=== PATIENT | male | born 1930 | race Caucasian/White ===

== ENCOUNTER 2018-05-29 15:52 | Inpatient (IN) | payer OTHER ==
--- NOTE | 2018-05-29 17:28 | PDOC ---
History of Present Illness - General Chief Complaint: Blood Transfusion Stated Complaint: ABNORMAL LABS Time Seen by Provider: 05/29/18 16:00 History Source: Patient, Skilled Nursing Records, Other (daughtert) Exam Limitations: No Limitations - History of Present Illness Initial Comments: 05/29/18 17:07 87-year-old male with history of bladder CA and recent esophageal stricture with gastritis was sent from the [facility] office for evaluation of positive pinkish red stool on digital exam are normal with low H&H which was done yesterday at the [facility]. Patient has had intermittent rectal bleeding for the past week and so was sent to the [facility] today. Patient has no complaints of weakness, shortness of breath dizziness, or chest pain. Timing/Duration: unsure Associated Symptoms: reports: denies symptoms Past History - Past Medical History Allergies/Adverse Reactions: Allergies Allergy/AdvReac Type Severity Reaction Status Date / Time No Known Allergies Allergy Verified 05/29/18 16:16 Cancer: Yes GI Disorders: Yes - Suicide/Smoking/Psychosocial Hx Smoking History: Never smoked Have you smoked in the past 12 months: No Information on smoking cessation initiated: No Hx Alcohol Use: No Drug/Substance Use Hx: No Lives with/in: [facility] Review of Systems - Review of Systems Able to Perform ROS?: No Constitutional: No: Symptoms Reported HEENTM: No: Symptoms Reported Respiratory: No: Symptoms reported Cardiac (ROS): No: Symptoms Reported ABD/GI: Yes: Rectal Bleeding. No: Constipated, Diarrhea, Nausea, Poor Appetite , Poor Fluid Intake, Vomiting, Abdominal cramping : No: Symptoms Reported Musculoskeletal: No: Symptoms Reported Integumentary: No: Symptoms Reported Neurological: No: Symptoms reported Endocrine: No: Symptoms Reported Hematologic/Lymphatic: Yes: Anemia *Physical Exam - Vital Signs Last Vital Signs Temp Pulse Resp BP Pulse Ox 98.2 F 57 L 16 125/55 98 05/29/18 16:11 05/29/18 16:11 05/29/18 16:11 05/29/18 16:11 05/29/18 16:11 - Physical Exam General Appearance: Yes: Nourished, Appropriately Dressed. No: Apparent Distress HEENT: positive: EOMI, EVANGELINA. negative: Pale Conjunctivae Neck: positive: Supple Respiratory/Chest: positive: Lungs Clear, Normal Breath Sounds. negative: Respiratory Distress, Accessory Muscle Use Cardiovascular: positive: Regular Rhythm, Bradycardia. negative: Murmur Gastrointestinal/Abdominal: positive: Normal Bowel Sounds, Soft. negative: Distended, Guarding, Rebound, Tenderness Rectal Exam: positive: heme positive stool (pinkish red stool on digital exam. No palpable hemorrhoids) Musculoskeletal: negative: CVA Tenderness Extremity: positive: Normal Capillary Refill. negative: Pedal Edema Integumentary: positive: Warm, Pale, Moist Neurologic: positive: Normal Mood/Affect, Motor Strength 5/5 Heart Score/ECG Review - ECG Impressions Normal ECG: No Bradycardia: Yes (Rate 57. Inverted T waves noted in the lateral leads V4 V5 and V6. QRS 130 milliseconds. QTc 465 ms. No previous EKG for comparison.) ED Treatment Course - LABORATORY CBC & Chemistry Diagram: 05/29/18 17:32 05/29/18 17:32 Medical Decision Making - Medical Decision Making 05/29/18 17:01 Patient sent for evaluation of rectal bleeding along with H&H which was recorded yesterday of 7.9 and 24. Family and patient unable to recall [facility]. Call placed to Dr. Alcala service states admit to the hospitalist. Patient is currently asymptomatic. EKG shows inverted T waves in the lateral leads. Called the [facility] and has no EKG on file and only cardiac history as cardiomyopathy. Cardiac profile was added to anemia w/u. 05/29/18 18:20 Laboratory Tests 05/29/18 05/29/18 05/29/18 17:32 17:32 17:32 WBC 4.7 RBC 2.22 L Hgb 8.0 L Hct 24.1 L MCV 108.5 H MCH 36.2 H Plt Count 150 Monocytes % 12.0 H Sodium 142 Potassium 4.9 Chloride 109 H Carbon Dioxide 23 Anion Gap 10 BUN 45 H Creatinine 2.6 H Random Glucose 110 H Calcium 8.1 L Magnesium 2.2 AST 22 ALT 33 Creatine Kinase Troponin I Albumin 2.8 L Blood Type Pending Antibody Screen Pending 05/29/18 17:45 WBC RBC Hgb Hct MCV MCH Plt Count Monocytes % Sodium Potassium Chloride Carbon Dioxide Anion Gap BUN Creatinine Random Glucose Calcium Magnesium AST ALT Creatine Kinase Pending Troponin I Pending Albumin Blood Type Antibody Screen Patient's labs from yesterday shows a baseline creatinine of 2.33 and bun Of 41. Microblog was sent to hospice and states to microblog again once labs are resulted, including cardiac profile 05/29/18 18:36 Laboratory Tests 05/29/18 05/29/18 17:32 17:45 Creatine Kinase 51 Troponin I < 0.02 Total Protein 7.1 *DC/Admit/Observation/Transfer Diagnosis at time of Disposition: Anemia, Rectal bleeding - Discharge Dispostion Decision to Admit order: Yes - Referrals Referrals: Prasanna Alcala MD [Primary Care Provider] - - Patient Instructions - Post Discharge Activity
[2018-05-29 17:40] LABS: BASO % 0.3 % (0-2.0); EOS % 2.3 % (0-4.5); HEMATOCRIT 24.1 % (35.4-49); LYMPH % 15.9 % (8-40); MCH 36.2 pg (25.7-33.7); MCHC 33.4 g/dl (32.0-35.9); MEAN CELL VOLUME 108.5 fl (80-96); MEAN PLT VOLUME 7.6 fl (7.5-11.1); NEUT % 69.5 % (42.8-82.8); PLATELET COUNT 150 K/MM3 (134-434); RBC 2.22 M/mm3 (4.00-5.60); RDW 16.7 % (11.9-15.9); WHITE BLOOD COUNT 4.7 K/mm3 (4.0-10.0)
[2018-05-29 18:08] LABS: ALBUMIN 2.8 g/dl (3.4-5.0); ALK PHOS 100 U/L (45-117); ANION GAP 10 (8-16); BILIRUBIN,TOTAL 0.2 mg/dL (0.2-1.0); BLOOD UREA NITROGEN 45 mg/dL (7-18); CALCIUM 8.1 mg/dL (8.5-10.1); CHLORIDE 109 mmol/L (98-107); CO2 23 mmol/L (21-32); CREATININE 2.6 mg/dL (0.7-1.3); GLUCOSE,RANDOM 110 mg/dL (74-106); MAGNESIUM 2.2 mg/dL (1.8-2.4); POTASSIUM 4.9 mmol/L (3.5-5.1); SGOT/AST 22 U/L (15-37); SGPT/ALT 33 U/L (12-78); SODIUM 142 mmol/L (136-145); TOT PROT 7.1 g/dl (6.4-8.2)
[2018-05-29 20:39] LABS: MACROCYTOSIS 1+; PLATELET ESTIMATE ADEQUATE
[2018-05-29] MEDS ORDERED: SODIUM CHLORIDE 1,000 ML IV SCH (21:30)
--- NOTE | 2018-05-29 22:17 | PN ---
Teaching Attending Note Name of Resident: Dustin Rodriguez ATTENDING PHYSICIAN STATEMENT I saw and evaluated the patient. I reviewed the resident's note and discussed the case with the resident. I agree with the resident's findings and plan as documented. SUBJECTIVE: Patient is an 87 year old man with history of bladder CA and recent esophageal stricture with gastritis was sent from the mental retardation nurse office for evaluation of positive pinkish red stool and low H&H which was [facility] at the [facility]. Patient has had intermittent rectal bleeding (melena and bright red blood) for the past week and so was sent to the mental retardation nurse today. At this time there is no active bleeding per rectum and no external hemorrhoids noted. Patient denies weakness, shortness of breath dizziness, or chest pain. OBJECTIVE: Alert, and in no acute distress Vital Signs Period Temp Pulse Resp BP Sys/Street Pulse Ox Last 24 Hr 97.9 F-98.2 F 57-57 16-18 125-151/55-55 95-98 HEENT: No Jaundice, eye redness or discharge, PERRLA, EOMI. Normocephalic, atraumatic. External ears are normal and hearing is grossly intact. No nasal discharge. Neck: Supple, nontender. No palpable adenopathy or thyromegaly. No JVD Chest: Good effort. Clear to auscultation and percussion. Heart: Bradycardia. No S3, rub or murmur Abdomen: Not distended, soft, nontender and no HSM. No rebound or guarding. Normoactive bowel sounds. Ext: Peripheral pulses intact. No leg edema. Skin: Warm and dry. No petechiae, rash or ecchymosis. Neuro: Alert. Oriented x3. CN 2-12 grossly intact. Sensation grossly intact in all four extremities and DTR are symmetric. Current Medications Generic Name Dose Route Start Last Admin Trade Name Freq PRN Reason Stop Dose Admin Sodium Chloride 1,000 mls @ 100 mls/hr 05/29/18 21:30 Normal Saline - [facility] Home Medications Medication Instructions Recorded Aa/Hydrolyzed Collagen, Whey [Lps 30 ml PO DAILY 05/29/18 Neutral Flavor Liquid] Acetaminophen [Pain Relief] 650 mg PO Q6H PRN 05/29/18 Ascorbate Calcium [Vitamin C] 500 mg PO BID 05/29/18 Aspirin/Dipyridamole [Aggrenox -] 1 combo PO BID 05/29/18 Ferrous Sulfate 325 mg PO TID 05/29/18 Heparin - 5,000 unit SQ BID 05/29/18 Hydralazine HCl 10 mg PO DAILY 05/29/18 Isosorbide Mononitrate [Isosorbide 30 mg PO DAILY 05/29/18 Mononitrate ER] Metoprolol Succinate 12.5 mg PO DAILY 05/29/18 Multivitamins [Tab-A-Vit -] 1 tab PO DAILY 05/29/18 Omeprazole 20 mg PO DAILY 05/29/18 Simvastatin 20 mg PO HS 05/29/18 Vit C/E/Zn/Coppr/Lutein/Zeaxan 1 each PO BID 05/29/18 [Preservision Areds 2 Softgel] Abnormal Lab Results 05/29/18 05/29/18 17:32 17:32 RBC 2.22 L Hgb 8.0 L Hct 24.1 L MCV 108.5 H MCH 36.2 H RDW 16.7 H Monocytes % 12.0 H Chloride 109 H BUN 45 H Creatinine 2.6 H Random Glucose 110 H Calcium 8.1 L Albumin 2.8 L ASSESSMENT AND PLAN: 1. GI Bleeding - The source of the bleeding is unclear. There is no indication at this time for NGT lavage to rule out gastric bleeding. Will get a CT of Abdomen and Pelvis, monitor hematocrit and transfuse once indicated, consult GI for colonoscopy and EGD. Treat with protonix 40 mg IV q 24 hours just in case it is PUD bleeding, check iron stores, B12 and folate (macrocytosis). Once iron deficiency is confirmed, he would benefit from IV iron therapy and possibly Procrit since he may have underlying renal anemia. 2. CKD - Etiology unclear. Needs nephrologic workup. Will consult nephrology and avoid nephrotoxic agents such as NSAIDS, aminoglycosides, contrast dyes and certain Alternative medicine products. 3. Elevated troponin - EKG shows sinus bradycardia with T wave inversion in V4- 6. No old EKG available. Will trend troponin, monitor him on telemetry and rule out ACS. If he does have ACs, then he may need to be transfused. 4. Hypoalbuminemia - He is on Puree diet due to dysphagia. Low albumin is possibly due to combined effects of malnutrition and inflammation associated with comorbid chronic conditions. Will ensure adequate dietary protein intake and also consult stripper color. 5. Hyperglycemia - Will check HbA1c to rule out prediabetes. 6. DVT prophylaxis - SCD, Early ambulation 7. Advance directives - Full code
[2018-05-29 23:09] LABS: URINE APPEARANCE CLEAR; URINE BILIRUBIN NEGATIVE (<2.0 mg/dL); URINE COLOR LTYELLOW; URINE GLUCOSE (UA) NEGATIVE (NEGATIVE); URINE KETONE NEGATIVE (NEGATIVE); URINE LEUK ESTERASE NEGATIVE (NEGATIVE); URINE NITRITE NEGATIVE (NEGATIVE); URINE UROBILINOGEN NEGATIVE mg/dL (0.2-1.0)
[2018-05-29 23:12] LABS: URINE PROTEIN 1+ (NEGATIVE)
[2018-05-29 23:15] LABS: URINE MUCUS RARE
--- NOTE | 2018-05-29 23:38 | HP ---
CHIEF COMPLAINT: GI bleeding PCP: HISTORY OF PRESENT ILLNESS: 87 y/o male from rehab facility with PMH bladder CA , cardiomyopathy with EF 35%, CAD s/p CABG, HTN, HLD, CKD, anemia, esophageal stricture, recently resolved UTI, was sent to ED by his GI physician after finding blood per rectum with HB 7.9 and HCT 24.0. Patient admits to melena for past week, and has had 5 episodes of dark colored stools over past 3 years but as never been worked up. Admits to diarrhea. Denies pain with bowel movements, abdominal pain, fevers, chills, SOB, nausea, vomiting, constipation. ER course was notable for: (1) EKG, fecal occult blood test, (2) (3) Recent Travel: PAST MEDICAL HISTORY: bladder CA, cardiomyopathy with EF 35%, CAD s/p CABG, HTN , HLD, CKD, anemia, esophageal stricture, recently resolved UTI PAST SURGICAL HISTORY: B/L carotid endarterectomy, abdominal aorta repair, CABG , Social History: Smoking: denies Alcohol: denies Drugs: denies Family History: Allergies No Known Allergies Allergy (Verified 05/29/18 16:16) HOME MEDICATIONS: Home Medications Medication Instructions Recorded Aa/Hydrolyzed Collagen, Whey [Lps 30 ml PO DAILY 05/29/18 Neutral Flavor Liquid] Acetaminophen [Pain Relief] 650 mg PO Q6H PRN 05/29/18 Ascorbate Calcium [Vitamin C] 500 mg PO BID 05/29/18 Aspirin/Dipyridamole [Aggrenox -] 1 combo PO BID 05/29/18 Ferrous Sulfate 325 mg PO TID 05/29/18 Heparin - 5,000 unit SQ BID 05/29/18 Hydralazine HCl 10 mg PO DAILY 05/29/18 Isosorbide Mononitrate [Isosorbide 30 mg PO DAILY 05/29/18 Mononitrate ER] Metoprolol Succinate 12.5 mg PO DAILY 05/29/18 Multivitamins [Tab-A-Vit -] 1 tab PO DAILY 05/29/18 Omeprazole 20 mg PO DAILY 05/29/18 Simvastatin 20 mg PO HS 05/29/18 Vit C/E/Zn/Coppr/Lutein/Zeaxan 1 each PO BID 05/29/18 [Preservision Areds 2 Softgel] REVIEW OF SYSTEMS CONSTITUTIONAL: Absent: fever, chills, diaphoresis, generalized weakness, CARDIOVASCULAR: Absent: chest pain, syncope, palpitations, lightheadedness, peripheral edema RESPIRATORY: Absent: cough, shortness of breath, dyspnea with exertion, wheezing, hemoptysis GASTROINTESTINAL: Admits: melena, diarrhea. Absent: abdominal pain, abdominal distension, nausea, vomiting, constipation MUSCULOSKELETAL: Absent: myalgia, arthralgia HEMATOLOGIC/IMMUNOLOGIC: Absent: easy bleeding, easy bruising, recent blood loss NEUROLOGIC: Absent: headache, focal weakness or paresthesias, dizziness PHYSICAL EXAMINATION Vital Signs - 24 hr 05/29/18 05/29/18 16:11 21:20 Temperature 98.2 F 97.9 F Pulse Rate 57 L Pulse Rate [ 57 L Radial] Respiratory 16 18 Rate Blood Pressure 125/55 Blood Pressure 151/55 [Right Arm] O2 Sat by Pulse 98 95 Oximetry (%) GENERAL: Awake, alert, and fully oriented, in no acute distress. HEAD: Normal with no signs of trauma. EYES: Pupils equal, round and reactive to light, extraocular movements intact, EARS, NOSE, THROAT: Moist mucous membranes. LUNGS: Breath sounds equal, clear to auscultation bilaterally. No wheezes, and no crackles. No accessory muscle use. HEART: Regular rate and rhythm, normal S1 and S2 without murmur, rub or gallop. ABDOMEN: Soft, nontender, not distended, normoactive bowel sounds, no guarding, no rebound, no masses. No hepatomegaly or splenomegaly. RECTAL: No hemorrhoids. Empty vault. Trace pink specimen visualized on glove. UPPER EXTREMITIES: 2+ pulses, warm, well-perfused. LOWER EXTREMITIES: 2+ pulses, warm, well-perfused. No peripheral edema. NEUROLOGICAL: Cranial nerves II-XII intact. Normal speech. Strength 5/5 B/L upper and lower extremities. PSYCHIATRIC: Cooperative. Appropriate mood and affect. Laboratory Results - last 24 hr 05/29/18 05/29/18 05/29/18 16:42 17:32 17:32 WBC 4.7 RBC 2.22 L Hgb 8.0 L Hct 24.1 L MCV 108.5 H MCH 36.2 H MCHC 33.4 RDW 16.7 H Plt Count 150 MPV 7.6 Absolute Neuts (auto) 3.3 Neutrophils % 69.5 Lymphocytes % 15.9 Monocytes % 12.0 H Eosinophils % 2.3 Basophils % 0.3 Nucleated RBC % 0 Platelet Estimate Adequate Polychromasia Rare Macrocytosis 1+ Spherocytes 1+ Sodium 142 Potassium 4.9 Chloride 109 H Carbon Dioxide 23 Anion Gap 10 BUN 45 H Creatinine 2.6 H Creat Clearance w eGFR 23.36 Random Glucose 110 H Calcium 8.1 L Magnesium 2.2 Total Bilirubin 0.2 AST 22 ALT 33 Alkaline Phosphatase 100 Creatine Kinase Troponin I Total Protein 7.1 Albumin 2.8 L Urine Color Urine Appearance Urine pH Ur Specific [place] Urine Protein Urine Glucose (UA) Urine Ketones Urine Blood Urine Nitrite Urine Bilirubin Urine Urobilinogen Ur Leukocyte Esterase Stool Occult Blood Negative Blood Type Antibody Screen 05/29/18 05/29/18 05/29/18 17:32 17:45 21:05 WBC RBC Hgb Hct MCV MCH MCHC RDW Plt Count MPV Absolute Neuts (auto) Neutrophils % Lymphocytes % Monocytes % Eosinophils % Basophils % Nucleated RBC % Platelet Estimate Polychromasia Macrocytosis Spherocytes Sodium Potassium Chloride Carbon Dioxide Anion Gap BUN Creatinine Creat Clearance w eGFR Random Glucose Calcium Magnesium Total Bilirubin AST ALT Alkaline Phosphatase Creatine Kinase 51 Troponin I < 0.02 Total Protein Albumin Urine Color Urine Appearance Urine pH Ur Specific [place] Urine Protein Urine Glucose (UA) Urine Ketones Urine Blood Urine Nitrite Urine Bilirubin Urine Urobilinogen Ur Leukocyte Esterase Stool Occult Blood Blood Type O POSITIVE O POSITIVE Antibody Screen Negative 05/29/18 22:40 WBC RBC Hgb Hct MCV MCH MCHC RDW Plt Count MPV Absolute Neuts (auto) Neutrophils % Lymphocytes % Monocytes % Eosinophils % Basophils % Nucleated RBC % Platelet Estimate Polychromasia Macrocytosis Spherocytes Sodium Potassium Chloride Carbon Dioxide Anion Gap BUN Creatinine Creat Clearance w eGFR Random Glucose Calcium Magnesium Total Bilirubin AST ALT Alkaline Phosphatase Creatine Kinase Troponin I Total Protein Albumin Urine Color Ltyellow Urine Appearance Clear Urine pH 5.0 Ur Specific [place] 1.014 Urine Protein 1+ H Urine Glucose (UA) Negative Urine Ketones Negative Urine Blood Negative Urine Nitrite Negative Urine Bilirubin Negative Urine Urobilinogen Negative Ur Leukocyte Esterase Negative Stool Occult Blood Blood Type Antibody Screen ASSESSMENT/PLAN: 87 y/o male from rehab facility with PMH bladder CA, cardiomyopathy with EF 35% , CAD s/p CABG, HTN, HLD, CKD, anemia, esophageal stricture, recently resolved UTI, was sent to ED by his GI physician after finding blood per rectum with HB 7.9 and HCT 24.0 Upper vs. lower GI bleed -FOBT negative in ED. No hemorrhoids. No active bleeding at this time. -HB 8.0/ HCT 24.1 -CT abdomen/ pelvis w/o contrast ordered -GI consult requested -Protonix -will monitor H/H Anemia -MCV 108 suggestive of B12/ folate deficiency, but cannot r/o Fe deficiency anemia d/t history blood loss -B12, Folate levels, reticulocytes -Fe, TIBC, transferrin, EKG changes -Sinus bradycardia, Q waves suggestive of prior inferior wall infarct, and T wave inversions lateral leads V4-V6 -first troponins negative at <0.02 -F/U repeat ECG showed -transthoracic echo ordered -follow troponins CKD -BUN 45, Cr 2.6, unclear pt baseline -IVNS 100ml/hr -Nephrology consult Hyperglycemia -110 at admission, no history of DM -F/U A1c to rule out prediabetes Hypoalbuminemia -Likely secondary to malnutrition. Currently on pure diet. -[employer] consult requested Cardiomyopathy -Reinstate Metoprolol HTN -Reinstate Hydralazine, Isosorbide mononitrate HLD -Reinstate Simvastatin FEN -IVNS 100ml/HR -No electrolyte repletion at this time -Pure diet Prophylaxis -SCD B/L legs, early ambulation Disposition: Admit to telemetry floor for monitoring Advance directives: Full code Case discussed with destination specialist attending Dustin Rodriguez DO PGY1 Visit type - Emergency Visit Emergency Visit: Yes ED Registration Date: 05/29/18 Care time: The patient presented to the Emergency Department on the above date and was hospitalized for further evaluation of their emergent condition. - New Patient This patient is new to me today: Yes Date on this admission: 05/30/18 - Critical Care Critical Care patient: No Hospitalist Screening - Colonoscopy Questionnaire Colonoscopy Questionnaire: Colonoscopy Questionnaire - Patient: 50 - 75 years old and never had a screening colonoscopy: Unknown History of colon or rectal polyps, or CA: Unknown History of IBD, Crohn's disease or UC: Unknown History of abdominal radiation therapy as a child: Unknown - Relative: 1 with colon or rectal CA, or polyps at age 60 or younger: Unknown Colon or rectal CA diagnosed at age 45 or younger: Unknown Multiple relatives with colon or rectal CA: Unknown - Outcome: Screening Result: Negative Screen
[2018-05-30] MEDS ORDERED: PT OWN MED DRAWER 7, Y5N ONE ×3 (09:31→21:40)
[2018-05-30] MEDS: metoPROLOL SUCCINATE 25 MG TAB.SR.24H (FP) PO SCH (09:35)
[2018-05-30] MEDS: ISOSORBIDE MONONITRATE 30 MG TAB.SR.24H (FP) PO SCH (09:36)
[2018-05-30] MEDS: hydrALAZINE HCL 10 MG TABLET PO SCH (09:36)
[2018-05-30] MEDS ORDERED: PANTOPRAZOLE SODIUM 40 MG VIAL IVPUSH SCH ×2 (10:00→22:00)
[2018-05-30 10:06] LABS: BASO % 0.4 % (0-2.0); EOS % 2.9 % (0-4.5); HEMATOCRIT 23.5 % (35.4-49); HEMOGLOBIN 7.8 GM/dL (11.7-16.9); LYMPH % 12.9 % (8-40); MCH 35.7 pg (25.7-33.7); MEAN CELL VOLUME 108.1 fl (80-96); MEAN PLT VOLUME 8.2 fl (7.5-11.1); MONO % 10.1 % (3.8-10.2); NEUT % 73.7 % (42.8-82.8); PLATELET COUNT 129 K/MM3 (134-434); RBC 2.18 M/mm3 (4.00-5.60); RDW 16.2 % (11.9-15.9); WHITE BLOOD COUNT 4.4 K/mm3 (4.0-10.0)
--- NOTE | 2018-05-30 10:45 | CON.GI ---
Consult Consult Specialty:: Gastroenterology Reason for Consultation:: anemia - History of Present Illness Chief Complaint: " i feel fine" History of Present Illness: patient is an 87 y/o male who was sent from a PCP office after was noted to have + bloody stool and dropping Hgb levels. Patient comes from snf and his aid noted that there was blood in stool so he was sent to a local PCP who then sent him here. Patient denies any complaints of abdominal pain, n/v/d. In the ER, patient was noted to have a HGb level of 8.0 and his stool occult blood test was negative. On abdominal CT, patient was found to have cholethiasis ,B/L nephrolithiasis with no obstructive uropathy noted and moderate L sided diverticulosis. Patients son is at bedside, who said this has never been a problem for his father before. He could not recall the last time his father had an EGD or colonoscopy, stating that it was probably many years ago. In review of [facility], patient underwent a modified bairum swallow test and was found to have ? esophageal stricture, son says he is now eating a pureed diet. Son is not aware of any GI malignancies in the family. - History Source History Provided By: Patient, Family Member (son Derrick at bedside ) - Past Medical History Cardio/Vascular: Yes: CAD (sp CABG aroun 10-15 years ago ), HTN, Hyperlipdemia, Other (cardiomyopathy ) Heme/Onc: Yes: Cancer (bladder cancer ) - Past Surgical History Past Surgical History: Yes: CABG (around 15 years ago ) - Alcohol/Substance Use Hx Alcohol Use: No History of Substance Use: reports: None - Smoking History Smoking history: Never smoked Have you smoked in the past 12 months: No - Social History Usual Living Arrangement: Group Home Place of : [facility] History of Recent Travel: No <Miladys Velazquez - Last Filed: 05/30/18 11:09> - Past Surgical History Past Surgical History: Yes: AAA Repair, Carotid Endarterectomy <Karl Zepeda - Last Filed: 05/30/18 17:26> Home Medications <Miladys Velazquez - Last Filed: 05/30/18 11:09> <Karl Zepeda - Last Filed: 05/30/18 17:26> - Allergies Allergies/Adverse Reactions: Allergies Allergy/AdvReac Type Severity Reaction Status Date / Time No Known Allergies Allergy Verified 05/29/18 16:16 - Home Medications Home Medications: Ambulatory Orders Aa/Hydrolyzed Collagen, Whey [Lps Neutral Flavor Liquid] 30 ml PO DAILY Acetaminophen [Pain Relief] 650 mg PO Q6H PRN 05/29/18 Ascorbate Calcium [Vitamin C] 500 mg PO BID 05/29/18 Aspirin/Dipyridamole [Aggrenox -] 1 combo PO BID 05/29/18 Ferrous Sulfate 325 mg PO TID 05/29/18 Heparin - 5,000 unit SQ BID 05/29/18 Hydralazine HCl 10 mg PO DAILY 05/29/18 Isosorbide Mononitrate [Isosorbide Mononitrate ER] 30 mg PO DAILY 05/29/18 Metoprolol Succinate 12.5 mg PO DAILY 05/29/18 Multivitamins [Tab-A-Vit -] 1 tab PO DAILY 05/29/18 Omeprazole 20 mg PO DAILY 05/29/18 Simvastatin 20 mg PO HS 05/29/18 Vit C/E/Zn/Coppr/Lutein/Zeaxan [Preservision Areds 2 Softgel] 1 each PO BID 09/06 Family Disease History - Family Disease History Family History: Unremarkable (son denies any significant family history) Other Family History: no known family history of any GI malignancies <Miladys Velazquez - Last Filed: 05/30/18 11:09> Review of Systems - Review of Systems Cardiovascular: denies: Chest Pain, Shortness of Breath Gastrointestinal: reports: Rectal Bleeding (was noted by aid in snf and PCP). denies: Abdominal Pain, Diarrhea, Nausea, Vomiting Genitourinary: denies: Burning, Pain <Miladys Velazquez - Last Filed: 05/30/18 11:09> Physical Exam-GI Vital Signs: Vital Signs Temperature 97.3 F L 05/30/18 06:53 Pulse Rate 59 L 05/30/18 06:53 Respiratory Rate 20 05/30/18 06:53 Blood Pressure 149/64 05/30/18 06:53 O2 Sat by Pulse Oximetry (%) 97 05/30/18 03:41 Constitutional: Yes: No Distress Eyes: No: Sclera Icterus Cardiovascular: Yes: Regular Rate and Rhythm Respiratory: Yes: CTA Bilaterally ...Auscultate: Yes: Normoactive Bowel Sounds ...Palpate: Yes: Soft. No: Hepatomegaly, Splenomegaly, Tenderness ...Percussion: No: Tympanitic ...Rectal Exam: Yes: Other (2+ prostate; no external lesions noted; brown guaiac negative stool noted in rectal vault; no hemorrhoids palpated) Edema: No Neurological: Yes: Alert Labs: CBC, BMP 05/30/18 09:30 <Miladys Velazquez - Last Filed: 05/30/18 11:09> Vital Signs: Vital Signs Temperature 98.0 F 05/30/18 15:08 Pulse Rate 54 L 05/30/18 15:08 Respiratory Rate 20 05/30/18 15:08 Blood Pressure 133/60 05/30/18 15:08 O2 Sat by Pulse Oximetry (%) 97 05/30/18 03:41 Gastrointestinal Inspection: Yes: Scars ...Rectal Exam: Yes: Other Labs: CBC, BMP 05/30/18 09:30 05/30/18 09:30 <Karl Zepeda - Last Filed: 05/30/18 17:26> Imaging - Results Cat Scan: Report Reviewed, Image Reviewed <Miladys Velazquez - Last Filed: 05/30/18 11:09> Problem List - Problems (1) Anemia Assessment/Plan: given patients anemia and prior episode of rectal bleeding, upper and or lower GI bleed cannot be ruled out -will discuss possibility of EGD and or colonoscopy with patient and family members -MCV is high at 108, possibly being a macrocytic anemia due to folate or vitaminB 12 deficiency- these values are pending -c/w IV protonix 40mg BID -continue to monitor HGB levels; will need to tranfuse if drops below 7 Code(s): D64.9 - ANEMIA, UNSPECIFIED <Miladys Velazquez - Last Filed: 05/30/18 11:09> - Problems (1) Anemia Assessment/Plan: ATTENDING PHYSICIAN STATEMENT I saw and evaluated the patient. I reviewed the resident's note and discussed the case with the resident. I agree with the resident's findings and plan as documented. SUBJECTIVE: 87M admitted from [place] for evaluation of rectal bleeding. No rectal bleeding since admission. Daughter present at bedside: states that he has had intermittent episodes of rectal bleeding in the past and that work-up has been declined given his age and medical problems. No abdominal pain noted. He has a history of dysphagia and had MBS recently. On pureed diet with thickened liquids. OBJECTIVE: Anicteric Hrt RRR with 2/6 systolic mnurmur at the RSB Lungs: CTA b/l Abd: + long midline vertical abdominopelvic surgical scar, non-distended + normoactive BS. No HSM Ext: No LE edema VAISHNAVI: non external lesion, linear ridge of prominent rectal mucosa palpated anteriorly at the 5 O'clock position, ironed stained stool, guaiac negative CT scan abd/pelvis: significant sigmoid diverticulosis ASSESSMENT: 1. Resolved rectal bleeding. Currently guaiac negative on exam, in ER and on resident's exam 2. Macrocytic anemia and thrombocytopenia: while rectal bleeding described, it does not account for the nature of this anemia Plan: Discussed finding on rectal exam and procedures that can be utilized to evaluate for sources of GI bleeding such as EGD and colonoscopy. We discussed potential risks of the procedures like but not limited to bleeding, perforation requiring surgery to repair, infection, sedation medication effects all of which could be potentially life threatening. I did also explain that bowel preparation would likely be difficult given Mr. Chris's dysphagia and need for thickened liquids. His daughter is deferring invasive testing at this time stating the patient's age and other medical problems. - Heme eval - ? need for aggrenox as opposed to ASA 81mg once daily - GI prophylaxis while on ASA therapy: ie pantoprazole 20mg once daily - Recall if family agreeable to endoscopic evaluations and patient medically cleared Code(s): D64.9 - ANEMIA, UNSPECIFIED <Karl Zepeda - Last Filed: 05/30/18 17:26>
[2018-05-30] MEDS ORDERED: SODIUM CHLORIDE 1,000 ML IV SCH (10:57)
--- NOTE | 2018-05-30 10:59 | PN ---
Progress Note, Physician Chief Complaint: Pt is lying in bed in no acute distress. Son at bedside, reports he is a short term resident at [facility]. Pt denies any sob, chest pain, dizziness, n/v/d, weakness or further complaints. He reports he feels well. - Current Medication List Current Medications: Active Medications Atorvastatin Calcium (Lipitor -) 10 mg PO [facility] Hydralazine HCl (Apresoline -) 10 mg PO DAILY [facility] Last Admin: 05/30/18 09:36 Dose: 10 mg Sodium Chloride (Normal Saline -) 1,000 mls @ 40 mls/hr IV ASDIR [facility] Isosorbide Mononitrate (Imdur -) 30 mg PO DAILY [facility] Last Admin: 05/30/18 09:36 Dose: 30 mg Metoprolol Succinate (Toprol Xl -) 12.5 mg PO DAILY [facility] Last Admin: 05/30/18 09:35 Dose: 12.5 mg Pantoprazole Sodium (Protonix Iv) 40 mg IVPUSH BID [facility] - Objective Vital Signs: Vital Signs Temperature 97.3 F L 05/30/18 06:53 Pulse Rate 59 L 05/30/18 06:53 Respiratory Rate 20 05/30/18 06:53 Blood Pressure 149/64 05/30/18 06:53 O2 Sat by Pulse Oximetry (%) 97 05/30/18 03:41 Constitutional: Yes: Well Nourished, No Distress, Calm Cardiovascular: Yes: WNL, Regular Rate and Rhythm. No: Gallop, Murmur Respiratory: Yes: WNL, Regular, CTA Bilaterally. No: Tachypnea, Wheezes Gastrointestinal: Yes: Normal Bowel Sounds, Soft. No: Distention, Tenderness Genitourinary: Yes: WNL Extremities: Yes: WNL Edema: No Neurological: Yes: WNL, Alert, Oriented Psychiatric: Yes: WNL, Alert, Oriented Labs: CBC, BMP 05/30/18 09:30 Problem List - Problems (1) Acute blood loss anemia Assessment/Plan: blood in stool and low hg at [facility] heme-occult neg here , no active melena noted possible UGIB/LGIB Hg/hct trend down today, pt asymptomatic macrocytic- vit b12 wnl, folate/iron panel pending Transfuse 1unit prbcs transfuse if hg<8.0 protonix iv bid pureed diet monitor hg hold aggrenox GI following- EGD/colonoscopy, GI to discuss with pt Code(s): D62 - ACUTE POSTHEMORRHAGIC ANEMIA (2) GIB (gastrointestinal bleeding) Assessment/Plan: as above Code(s): K92.2 - GASTROINTESTINAL HEMORRHAGE, UNSPECIFIED (3) HTN (hypertension) Assessment/Plan: controlled continue metoprolol , hydralazine, imdur Code(s): I10 - ESSENTIAL (PRIMARY) HYPERTENSION Qualifiers: Hypertension type: essential hypertension Qualified Code(s): I10 - Essential (primary) hypertension (4) CAD (coronary artery disease) Assessment/Plan: s/p cabg hold aggrenox in the setting of acute anemia no signs of acs at the moment Code(s): I25.10 - ATHSCL HEART DISEASE OF [place] CORONARY ARTERY W/O ANG PCTRS Qualifiers: [place] vs. transplanted heart: [place] heart Associated angina: without angina (5) CKD (chronic kidney disease) Assessment/Plan: acute on chronic, improved baseline cr unclear- 2.3 on 05/28/18 at [facility] d/c ivf nephrology following Code(s): N18.9 - CHRONIC KIDNEY DISEASE, UNSPECIFIED Qualifiers: Chronic kidney disease stage: stage 3 (moderate) Qualified Code(s): N18.3 - Chronic kidney disease, stage 3 (moderate) (6) Hyperlipidemia Assessment/Plan: chronic continue statin Code(s): E78.5 - HYPERLIPIDEMIA, UNSPECIFIED (7) History of esophageal stricture Assessment/Plan: stable continue pureed diet Code(s): Z87.19 - PERSONAL HISTORY OF OTHER DISEASES OF THE DIGESTIVE SYSTEM (8) Cardiomyopathy Assessment/Plan: echo reviewed: mild posterolateral wall hypokinesis but normal EF per outsole molder Code(s): I42.9 - CARDIOMYOPATHY, UNSPECIFIED Assessment/Plan Dispo: [facility] when medically stable, once GI cleared
--- NOTE | 2018-05-30 11:00 | ECHO ---
Name: ERLIN RODRIGUEZ Exam:Adult Echocardiogram Study Date: 05/30/2018 08:01 AM Reason For Study: Cardiomyopathy Height: 70 in Weight: 160 lb BSA: 1.9 m2 MMode/2D Measurements & Calculations IVSd: 1.6 cm Ao root diam: 3.7 cm FS: 17.1 % LVIDd: 5.2 cm LA dimension: 3.0 cm EDV(Teich): 130.6 ml LVIDs: 4.3 cm ESV(Teich): 84.2 ml LVPWd: 1.1 cm EF(Teich): 35.5 % LAV (MOD-bp): 68.2 ml Doppler Measurements & Calculations MV E max artur: 42.7 cm/sec MV dec time: 0.26 sec AI P1/2t: 472.1 msec MV A max artur: 97.5 cm/sec MV E/A: 0.44 AI max artur: 383.5 cm/sec AV P1/2t-pr_phl: 472.2 msec PI Vmax_phl: 146.6 cm/sec AI max P.8 mmHg AI dec slope: 237.9 cm/sec2 Lat E/e': 8.2 Med E/e': 13.1 Pediatric Measurements & Calculations Lat Peak E' Artur: 5.2 cm/sec Med Peak E' Artur: 3.3 cm/sec Procedure A two-dimensional transthoracic echocardiogram with color flow and Doppler was performed. Left Ventricle There is moderate concentric left ventricular hypertrophy. The left ventricular ejection fraction is normal. E/A reversal consistent with but not diagnostic of poor LV compliance. Septal motion is consistent wi th conduction abnormality. There is basal posterolateral wall mild hypokinesis. Right Ventricle The right ventricle is normal in size and function. Atria Normal left and right atrial size and function. Mitral Valve There is mild mitral valve thickening. There is no mitral valve stenosis. There is moderate mitral regurgitation. Tricuspid Valve There is mild tricuspid valve thickening. There is no tricuspid stenosis. There was insufficient TR d etected to calculate RV systolic pressure. Aortic Valve The aortic valve is normal in structure and function. No hemodynamically significant valvular aortic stenosis. Mild to moderate aortic regurgitation. Pulmonic Valve The pulmonic valve is not well visualized. There is no pulmonic valvular stenosis. Mild pulmonic valv ular regurgitation. Great Vessels The aortic root is normal size. Pericardium/Pleura There is no pericardial effusion. Interpretation Summary There is moderate concentric left ventricular hypertrophy. The left ventricular ejection fraction is normal. Mild pulmonic valvular regurgitation. Septal motion is consistent with conduction abnormality. The right ventricle is normal in size and function. E/A reversal consistent with but not diagnostic of poor LV compliance There is mild mitral valve thickening. There is basal posterolateral wall mild hypokinesis. There was insufficient TR detected to calculate RV systolic pressure. Mild to moderate aortic regurgitation. MD Bi Burk 05/30/2018 10:59 AM
[2018-05-30 11:25] LABS: CALCIUM 8.1 mg/dL (8.5-10.1); CHLORIDE 110 mmol/L (98-107); POTASSIUM 4.3 mmol/L (3.5-5.1); SODIUM 141 mmol/L (136-145)
[2018-05-30 12:01] LABS: ALBUMIN 2.5 g/dl (3.4-5.0); ALK PHOS 80 U/L (45-117); ANION GAP 9 (8-16); BILIRUBIN,TOTAL 0.3 mg/dL (0.2-1.0); BLOOD UREA NITROGEN 39 mg/dL (7-18); CO2 22 mmol/L (21-32); CREATININE 2.1 mg/dL (0.7-1.3); GLUCOSE,RANDOM 114 mg/dL (74-106); SGOT/AST 20 U/L (15-37); SGPT/ALT 30 U/L (12-78); TOT PROT 6.5 g/dl (6.4-8.2)
--- NOTE | 2018-05-30 12:46 | CONSULT ---
Consult - text type - Consultation Consultation Note: Renal Consult for CHRISTIAN vs. CKD This is a 87 year old gentleman with PMhx of Bladder Ca, CHF with EF 35%, CAD s/ p CABG, Hypertension, HLD, CKD (? baseline), Esophageal stricture who presented with bloody stools and found to have anemia and Cr of 2.3. Pt reports having blood in his stool for a while but could not quantify. Denies any Abd pain, N/ V. Denies any history of CKD (but CKD is listed in Medical record and Cr was 2.3 in 05/28/18) or having seen a kidney doctor in the past. No flank pain, dysuria, hematuria, urinary retention. Denies any NSAID use. No recent history of contrast exposure. Making urine. Denies any decrease in oral intake prior to admission. PMhx: as above Allergies: NKDA Family Hx: NC Social hx: No T/A/D ROS: as per HPI Home Medications Medication Instructions Recorded Aa/Hydrolyzed Collagen, Whey [Lps 30 ml PO DAILY 05/29/18 Neutral Flavor Liquid] Acetaminophen [Pain Relief] 650 mg PO Q6H PRN 05/29/18 Ascorbate Calcium [Vitamin C] 500 mg PO BID 05/29/18 Aspirin/Dipyridamole [Aggrenox -] 1 combo PO BID 05/29/18 Ferrous Sulfate 325 mg PO TID 05/29/18 Heparin - 5,000 unit SQ BID 05/29/18 Hydralazine HCl 10 mg PO DAILY 05/29/18 Isosorbide Mononitrate [Isosorbide 30 mg PO DAILY 05/29/18 Mononitrate ER] Metoprolol Succinate 12.5 mg PO DAILY 05/29/18 Multivitamins [Tab-A-Vit -] 1 tab PO DAILY 05/29/18 Omeprazole 20 mg PO DAILY 05/29/18 Simvastatin 20 mg PO HS 05/29/18 Vit C/E/Zn/Coppr/Lutein/Zeaxan 1 each PO BID 05/29/18 [Preservision Areds 2 Softgel] Vital Signs Temperature 98.0 F 05/30/18 10:00 Pulse Rate 53 L 05/30/18 10:00 Respiratory Rate 20 05/30/18 10:00 Blood Pressure 123/49 05/30/18 10:00 O2 Sat by Pulse Oximetry (%) 97 05/30/18 03:41 Intake & Output 05/27/18 05/28/18 05/29/18 05/30/18 23:59 23:59 23:59 23:59 Intake Total 1050 Balance 1050 Weight 72.575 kg 62.324 kg NAD, awake and alert x 3 MMM, No JVD, Neck supple RRR, No M/R CTA, no rales soft NT/ND no bladder distension no LE edema or cyanosis CBC, BMP 05/30/18 09:30 05/30/18 09:30 Laboratory Tests 05/29/18 05/29/18 05/30/18 16:42 22:40 09:30 Calcium 8.1 L Albumin 2.5 L Urine Protein 1+ H Stool Occult Blood Negative Current Medications Atorvastatin Calcium (Lipitor -) 10 mg PO HS [facility] Hydralazine HCl (Apresoline -) 10 mg PO DAILY [facility] Last Admin: 05/30/18 09:36 Dose: 10 mg Sodium Chloride (Normal Saline -) 1,000 mls @ 40 mls/hr IV ASDIR [facility] Isosorbide Mononitrate (Imdur -) 30 mg PO DAILY [facility] Last Admin: 05/30/18 09:36 Dose: 30 mg Metoprolol Succinate (Toprol Xl -) 12.5 mg PO DAILY [facility] Last Admin: 05/30/18 09:35 Dose: 12.5 mg Pantoprazole Sodium (Protonix Iv) 40 mg IVPUSH BID [facility] 87 year old gentleman with PMhx of Bladder Ca, CHF with EF 35%, CAD s/p CABG, Hypertension, HLD, CKD (? baseline), Esophageal stricture who presented with bloody stools and found to have anemia and Cr of 2.3. #CHRISTIAN vs. CKD (likely underlying CKD) #Acute Anemia #Suspected GI bleed #Hx of HF Cr stable thus far this admission Check urine studies for FeNa, UPCR CT of the Abd showed showed b/l kidney stones but no obstruction and acute intervention not warrented Trend BUN/Cr and electrolytes keep MAP > 65 would not start TEODORO/ARB in the acute setting PT may need OLEKSANDR if has signifincat CKD transfuse PRBC as per primary GI follow up no evidence of acute decompensated HF can d/c IVF if pt is tolerated oral diet Thank you Will follow Bj Funez DO
[2018-05-30 15:28] VITALS: BMI 19.6
--- NOTE | 2018-05-30 19:28 | PN ---
Progress Note (short form) - Note Progress Note: Patient seen and examined Problems Reported hematest positive stool in [place]- heme negative at [facility] Macrocytic anemia- low normal B-12--> 306 pg% Fe++ studies , folate pending CKD, ?CHRISTIAN- contributing to anemia CAD HBP HPL Suspect multifactorial anemia with component of chronic disease, CKD, blood loss, +/_ megaloblastosis with low normal B-12. Has reverse A/G ratio Family has declined GI work up. Will obtain TFT's, Await Fe++ studies Potential candidate for OLEKSANDR Will order Flow Will treat with B-12 therapy.
[2018-05-30] MEDS: ATORVASTATIN CA 10 MG TABLET (FP) PO SCH (22:57)
--- NOTE | 2018-05-30 23:31 | CONS ---
DATE OF CONSULTATION: 05/30/2018 This is an 87-year-old referred for heme-positive stools and falling hematocrit. While at [facility] the Hemoccult of his stool was negative. PAST HISTORY: Includes that of coronary artery disease, CABG, hypertension, hyperlipidemia, cardiomyopathy, bladder cancer. Patient has a macrocytic anemia with MCV of 108, hematocrit 23%, normal white count, normal platelet count, normal differential. No history of alcohol. Nonsmoker. Lives in a half-way. PAST SURGICAL HISTORY: Includes a carotid endarterectomy and an abdominal aortic aneurysm repair. CURRENT MEDICATIONS: Include metoprolol 12.5 mg daily, hydralazine 10 mg daily, Lipitor 10 mg daily, Imdur 30 mg daily, and Protonix 20 mg daily. ALLERGIES: No known allergies. REVIEW OF SYSTEMS: Denies headaches, diplopia, epistaxis, some difficulty swallowing. No shortness of breath. No chest pain. No nausea, vomiting, diarrhea. No dysuria. No significant lower extremity edema. No back pain. CURRENT PHYSICAL: Vital Signs: Blood pressure 133/60, pulse 54, respiratory rate 20, afebrile. HEENT: Mild right ptosis. Edentulous upper. Diminished papillation of the tongue. Lungs: Clear. Cardiac: RSR. Sternotomy scar, abdominal scar. ABDOMEN: Soft, no organomegaly or masses. EXTREMITIES: No significant edema. LABORATORY: WBC 4.4, hematocrit 23.5, MCV 108, platelets 129, 73 polymorphonuclears, 13 lymphocytes, 10 monos. Chemistries: 141 sodium, potassium 43, chloride 110, CO2 22, BUN 39, creatinine 2.1, creatinine 2.6 on admission. Calcium 8.1, magnesium 2.2. Iron studies pending. Bilirubin is 0.3, AST 20, ALT 30, alkaline phosphatase is 80. Protein is 7.1 and 2.8, and 6.5 and 2.5. B12 306. IMPRESSION: An 87-year-old half-way resident comes in with previous black stools, heme-test positive, currently heme-test negative. Has macrocytosis. Has B12 of 306, which will be treated. We will obtain thyroid studies. Folate is pending. MDS is another consideration. Has reverse albumin to globulin ratio and protein studies likewise will be obtained. Based upon results, further recommendations. Thank you. AUGUSTINE GOYAL M.D. OLENA/[id number]
[2018-05-31 08:16] LABS: SERUM IRON SATURATION 28 % (15-55); TOTAL IRON BINDING CAPACITY 200 ug/dL (250-450); UIBC 144 ug/dL (111-343)
[2018-05-31 08:46] LABS: BASO % 0.7 % (0-2.0); EOS % 4.1 % (0-4.5); HEMATOCRIT 27.5 % (35.4-49); HEMOGLOBIN 9.4 GM/dL (11.7-16.9); LYMPH % 13.7 % (8-40); MCH 36.3 pg (25.7-33.7); MCHC 34.1 g/dl (32.0-35.9); MEAN CELL VOLUME 106.4 fl (80-96); MEAN PLT VOLUME 8.1 fl (7.5-11.1); MONO % 10.6 % (3.8-10.2); NEUT % 70.9 % (42.8-82.8); PLATELET COUNT 119 K/MM3 (134-434); RBC 2.58 M/mm3 (4.00-5.60); RDW 17.1 % (11.9-15.9); WHITE BLOOD COUNT 5.6 K/mm3 (4.0-10.0)
[2018-05-31] MEDS ORDERED: PT OWN MED DRAWER 7, Y5N ONE (09:04)
[2018-05-31 09:19] LABS: CALCIUM 8.2 mg/dL (8.5-10.1); CHLORIDE 112 mmol/L (98-107); POTASSIUM 4.7 mmol/L (3.5-5.1); SODIUM 143 mmol/L (136-145)
[2018-05-31] MEDS: metoPROLOL SUCCINATE 25 MG TAB.SR.24H (FP) PO SCH (09:21)
[2018-05-31] MEDS: hydrALAZINE HCL 10 MG TABLET PO SCH (09:22)
[2018-05-31] MEDS: ISOSORBIDE MONONITRATE 30 MG TAB.SR.24H (FP) PO SCH (09:22)
[2018-05-31] MEDS: PANTOPRAZOLE 20 MG TABLET (FP) PO SCH (09:22)
[2018-05-31 09:34] LABS: ANION GAP 9 (8-16); BLOOD UREA NITROGEN 39 mg/dL (7-18); CO2 22 mmol/L (21-32); CREATININE 2.1 mg/dL (0.7-1.3); GLUCOSE,RANDOM 82 mg/dL (74-106); PHOSPHOROUS 3.3 mg/dL (2.5-4.9)
--- NOTE | 2018-05-31 11:35 | DS ---
Physical Examination Vital Signs: Vital Signs Temperature 98.4 F 05/31/18 09:00 Pulse Rate 57 L 05/31/18 09:00 Respiratory Rate 20 05/31/18 09:00 Blood Pressure 145/52 05/31/18 09:00 O2 Sat by Pulse Oximetry (%) 100 05/31/18 09:00 Constitutional: Yes: Well Nourished, No Distress, Calm Cardiovascular: Yes: WNL, Regular Rate and Rhythm Respiratory: Yes: WNL, Regular, CTA Bilaterally. No: Cough, SOB, Tachypnea, Wheezes Gastrointestinal: Yes: WNL, Normal Bowel Sounds, Soft. No: Distention, Melena, Tenderness Renal/: Yes: WNL Extremities: Yes: WNL Edema: No Neurological: Yes: WNL, Alert, Oriented Psychiatric: Yes: WNL, Alert, Oriented Labs: CBC, BMP 05/31/18 06:30 05/31/18 06:30 Discharge Summary Reason For Visit: ANEMIA/RECTAL HEMORRHAGE Current Active Problems Acute blood loss anemia (Acute) Anemia (Acute) Anemia (Acute) CAD (coronary artery disease) (Acute) CKD (chronic kidney disease) (Acute) Cardiomyopathy (Acute) GIB (gastrointestinal bleeding) (Acute) HTN (hypertension) (Acute) History of esophageal stricture (Acute) Hyperlipidemia (Acute) Rectal bleeding (Acute) Hospital Course: is a 87 year old male who came in for evaluation of blood in stool and acute anemia. Pt found to have Hg7.8, transfused 1 unit prbcs. Hg/hct stable. Heme occult stool negative here. No episodes of melena or any signs of bleeding. Vitals stable. Pt evaluated by GI, pt and family has decided to not pursue egd/colonoscopy. Family prefers conservative management of anemia. Pt evaluated by Hematology. macrocytic anemia noted- could be multifactorial with ckd, possible slow chronic gib, anemia of chronic disease. Vitamin B12 level low normal, started on Vitamin b12 injection per Hematology. Otherwise, pt is stable for discharge from hospital. Condition: Fair - Instructions Diet, Activity, Other Instructions: resume pureed diet activity as tolerated continue meds HOLD AGGRENOX UNTIL f/u with cardiology and PER Pt's HCP Tracy- DOES NOT WANT FATHER ON AGGRENOX f/u as directed Referrals: Prasanna Alcala MD [Primary Care Provider] - 1 Week Walker Tyson MD [Staff Physician] - 1 Week (HEMATOLOGY- FOR ANEMIA) Disposition: [facility] - Home Medications Comprehensive Discharge Medication List: Ambulatory Orders Aa/Hydrolyzed Collagen, Whey [Lps Neutral Flavor Liquid] 30 ml PO DAILY Acetaminophen [Pain Relief] 650 mg PO Q6H PRN 05/29/18 Ascorbate Calcium [Vitamin C] 500 mg PO BID 05/29/18 Ferrous Sulfate 325 mg PO TID 05/29/18 Heparin - 5,000 unit SQ BID 05/29/18 Hydralazine HCl 10 mg PO DAILY 05/29/18 Isosorbide Mononitrate [Isosorbide Mononitrate ER] 30 mg PO DAILY 05/29/18 Metoprolol Succinate 12.5 mg PO DAILY 05/29/18 Multivitamins [Multivit ([facility] Formulary)] 1 tab PO DAILY 05/29/18 Omeprazole 20 mg PO DAILY 05/29/18 Simvastatin 20 mg PO HS 05/29/18 Vit C/E/Zn/Coppr/Lutein/Zeaxan [Preservision Areds 2 Softgel] 1 each PO BID 09/06 Cyanocobalamin Vit B-12 Inj. [Vitamin B12 Injection -] 1,000 mcg IM Q7D@1000 vial 05/31/18 Pantoprazole Sodium [Protonix -] 20 mg PO DAILY tablet.ec 05/31/18
--- NOTE | 2018-05-31 12:04 | EKG ---
Test Reason : Blood Pressure : / mmHG Vent. Rate : 057 BPM Atrial Rate : 057 BPM P-R Int : 220 ms QRS Dur : 130 ms QT Int : 478 ms P-R-T Axes : 029 004 188 degrees QTc Int : 465 ms SINUS BRADYCARDIA WITH 1ST DEGREE A-V BLOCK LEFT VENTRICULAR HYPERTROPHY WITH QRS WIDENING AND REPOLARIZATION ABNORMALITY POSSIBLE INFERIOR INFARCT , AGE UNDETERMINED ABNORMAL ECG NO PREVIOUS ECGS AVAILABLE Confirmed by WINSTON CAVAZOS, VIVIANA ([id number]) on 05/31/2018 12:04:03 PM Referred By: Confirmed By:VIVIANA MONTERO MD
[2018-05-31] MEDS ORDERED: CYANOCOBALAMIN (VITAMIN B-12) 1000 MCG/1 ML VIAL IM ONE ×2 (13:02→15:30)
--- NOTE | 2018-05-31 16:44 | PN ---
Progress Note (short form) - Note Progress Note: Renal follow up for CHRISTIAN Pt seen and examined at the bedside awake and alert no acute complaints Vital Signs Temperature 97.7 F 05/31/18 15:11 Pulse Rate 55 L 05/31/18 15:11 Respiratory Rate 20 05/31/18 15:11 Blood Pressure 134/51 05/31/18 15:11 O2 Sat by Pulse Oximetry (%) 100 05/31/18 09:00 Intake & Output 05/28/18 05/29/18 05/30/18 05/31/18 23:59 23:59 23:59 23:59 Intake Total 2380 790 Output Total 600 300 Balance 1780 490 Weight 72.575 kg 62.142 kg NAD RRR CTA no edema CBC, BMP 05/31/18 06:30 05/31/18 06:30 Current Medications Atorvastatin Calcium (Lipitor -) 10 mg PO HS [facility] Last Admin: 05/30/18 22:57 Dose: 10 mg Cyanocobalamin (Vitamin B12 Injection -) 1,000 mcg IM We [facility] Hydralazine HCl (Apresoline -) 10 mg PO DAILY [facility] Last Admin: 05/31/18 09:22 Dose: 10 mg Isosorbide Mononitrate (Imdur -) 30 mg PO DAILY [facility] Last Admin: 05/31/18 09:22 Dose: 30 mg Metoprolol Succinate (Toprol Xl -) 12.5 mg PO DAILY [facility] Last Admin: 05/31/18 09:21 Dose: 12.5 mg Pantoprazole Sodium (Protonix -) 20 mg PO DAILY [facility] Last Admin: 05/31/18 09:22 Dose: 20 mg 87 year old gentleman with PMhx of Bladder Ca, CHF with EF 35%, CAD s/p CABG, Hypertension, HLD, CKD (? baseline), Esophageal stricture who presented with bloody stools and found to have anemia and Cr of 2.3. #CHRISTIAN vs. CKD (likely underlying CKD) #Acute Anemia #Suspected GI bleed #Hx of HF Renal function stable off IVF Trend BUN/Cr and electrolytes avoid nephrotoxins will give aranesp SC x 1 for anemia (iron saturation at goal) GI follow up Bj Funez DO
[2018-05-31] MEDS ORDERED: Darbepoetin Alfa in Polysorbat 25 MCG/0.4 ML DISP.SYRIN SQ ONE (17:00)
[2018-05-31] MEDS: ATORVASTATIN CA 10 MG TABLET (FP) PO SCH (22:16)
[2018-06-01 06:13] LABS: IGA IMMUNOGLOBULIN 438 mg/dL (61-437); IGG IMMUNOGLOBULIN 1298 mg/dL (700-1600); IGM IMMUNOGLOBULIN 49 mg/dL (15-143)
[2018-06-01 06:52] VITALS: BP 145/55; PULSE 55; TEMP 97.4
[2018-06-01] MEDS ORDERED: PT OWN MED DRAWER 7, Y5N ONE (08:59)
[2018-06-01] MEDS: metoPROLOL SUCCINATE 25 MG TAB.SR.24H (FP) PO SCH (09:00)
[2018-06-01] MEDS: hydrALAZINE HCL 10 MG TABLET PO SCH (09:00)
[2018-06-01] MEDS: ISOSORBIDE MONONITRATE 30 MG TAB.SR.24H (FP) PO SCH (09:00)
[2018-06-01] MEDS: PANTOPRAZOLE 20 MG TABLET (FP) PO SCH (09:00)
[2018-06-06] MEDS ORDERED: CYANOCOBALAMIN (VITAMIN B-12) 1000 MCG/1 ML VIAL IM SCH (10:00)
== END 2018-06-01 13:41 | DRG 378 ==
LOC: JER 15:52 → JERBED 19:50 → OBSVTOIN 23:11 → J8W 05-30 00:52
PROVIDERS: ADMIT Internal Medicine; ATTEND Internal Medicine
PROC: 30233N1 Transfusion of Nonautologous Red Blood Cells into Peripheral Vein, Percutaneous Approach (ICD-10-PCS; principal; 2018-05-30)
DX: K62.5 Hemorrhage of anus and rectum (principal); I42.8 Other cardiomyopathies; D62 Acute posthemorrhagic anemia; N17.9 Acute kidney failure, unspecified; E46 Unspecified protein-calorie malnutrition; Z68.1 Body mass index [BMI] 19.9 or less, adult; K29.70 Gastritis, unspecified, without bleeding; E88.09 Other disorders of plasma-protein metabolism, not elsewhere classified; R73.9 Hyperglycemia, unspecified; R00.1 Bradycardia, unspecified; I25.10 Atherosclerotic heart disease of native coronary artery without angina pectoris; E78.5 Hyperlipidemia, unspecified; D64.9 Anemia, unspecified; I12.9 Hypertensive chronic kidney disease with stage 1 through stage 4 chronic kidney disease, or unspecified chronic kidney disease; D63.1 Anemia in chronic kidney disease; N18.3 Chronic kidney disease, stage 3 (moderate); Z87.19 Personal history of other diseases of the digestive system; Z85.51 Personal history of malignant neoplasm of bladder; Z95.1 Presence of aortocoronary bypass graft
CPT/HCPCS: 36415; 36430; 74176-TC; 80048; 80053; 81003; 81015; 82272; 82550; 82607; 82728; 82747; 82784; 83036; 83540; 83550; 83615; 83735; 84100; 84155; 84165; 84439; 84443; 84466; 84484; 85014; 85025; 85044; 86334; 86850; 86900; 86901; 86922; 93005; 93010; 93306-TC; 97116-GP; 97161-GP; 99285-25; G0378; J0881; J7030; P9038; P9058